=== PATIENT | female | born 1990 | race Caucasian/White ===

== ENCOUNTER → 2021-11-03 | Outpatient (REF) | LOC: M EMP 16:46 | PROVIDERS: ATTEND Family Medicine | DX: Z20.828 Contact with and (suspected) exposure to other viral communicable diseases (principal) ==

== ENCOUNTER → 2021-11-07 | Outpatient (REF) | LOC: M EMP 07:56 | PROVIDERS: ATTEND Family Medicine | DX: Z20.828 Contact with and (suspected) exposure to other viral communicable diseases (principal) ==

== ENCOUNTER → 2022-08-22 | Outpatient (REF) | LOC: M LABSMTC 14:08 | PROVIDERS: ATTEND Family Medicine | DX: Z20.822 Contact with and (suspected) exposure to COVID-19 (principal) ==

== ENCOUNTER 2024-08-04 15:21 | Emergency (ER) | payer OTHER ==
[~2024-08-04] VITALS: Ht 175.3 cm; Wt 92.5 kg
[2024-08-04] MEDS ORDERED: AMOX875T2 PO (15:29)
[2024-08-04] MEDS ORDERED: RABIES IMMUNE GLOBULIN 1500 INTERNATIONAL UNIT/5ML VIAL IM.IMMUN ONE (16:00)
[2024-08-04 16:31] VITALS: BP 111/62; TEMP 98; O2SAT 100
[2024-08-04] MEDS: RABIES VACCINE 2.5 INTERNATIONAL UNITS/ML VIAL (RABAVERT) IM ONE (16:44)
[2024-08-04] MEDS: RABIES IMMUNE GLOBULIN 1500 INTERNATIONAL UNIT/5ML VIAL IM.IMMUN ONE (16:48)
[2024-08-04] MEDS: RABIES IMMUNE GLOBULIN 300 INTERNATIONAL UNITS/1ML VIAL IM.IMMUN ONE (16:50)
== END 2024-08-04 17:09 | disposition home or self-care (01) ==
LOC: M ED 15:21
DX: Z20.3 Contact with and (suspected) exposure to rabies (principal); Z23 Encounter for immunization; S61.251A Open bite of left index finger without damage to nail, initial encounter; W55.01XA Bitten by cat, initial encounter; Y92.9 Unspecified place or not applicable; Y93.9 Activity, unspecified; Y99.9 Unspecified external cause status; Z88.6 Allergy status to analgesic agent

== ENCOUNTER 2024-08-07 06:04 | Emergency (ER) | payer OTHER ==
[~2024-08-07] VITALS: Ht 175.3 cm; Wt 91.4 kg
[~2024-08-07 06:04] MED LIST: AMOX875T2 PO
[2024-08-07 06:05] VITALS: BP 123/68; TEMP 96.7; O2SAT 100
[2024-08-07] MEDS: RABIES VACCINE 2.5 INTERNATIONAL UNITS/ML VIAL (RABAVERT) IM ONE (06:51)
== END 2024-08-07 07:08 | disposition home or self-care (01) ==
LOC: M ED 06:04
DX: Z20.3 Contact with and (suspected) exposure to rabies (principal); Z23 Encounter for immunization; Z88.6 Allergy status to analgesic agent

== ENCOUNTER 2024-08-11 16:41 | Emergency (ER) | payer OTHER ==
[~2024-08-11] VITALS: Ht 175.3 cm; Wt 91.7 kg
[2024-08-11 16:41] VITALS: BP 148/88; TEMP 97.4; O2SAT 99
[2024-08-11] MEDS: RABIES VACCINE 2.5 INTERNATIONAL UNITS/ML VIAL (RABAVERT) IM ONE (17:28)
== END 2024-08-11 18:08 | disposition home or self-care (01) ==
LOC: M ED 16:41
DX: Z29.14 Encounter for prophylactic rabies immune globulin (principal); Z20.3 Contact with and (suspected) exposure to rabies; Z88.6 Allergy status to analgesic agent; Z79.2 Long term (current) use of antibiotics

== ENCOUNTER → 2024-08-17 | Outpatient (REF) | payer OTHER ==
[2024-08-19 11:58] LABS: HPV APTIMA Not Detected (Not Detected)
== END ==
LOC: M SFHCWAGY 12:05
PROVIDERS: ATTEND Nurse Practitioner Family
DX: Z12.4 Encounter for screening for malignant neoplasm of cervix (principal); N94.10 Unspecified dyspareunia
CPT/HCPCS: 87070; 87624; G0123

== ENCOUNTER 2024-08-18 16:52 | Emergency (ER) | payer OTHER ==
[~2024-08-18] VITALS: Ht 175.3 cm; Wt 91.0 kg
[2024-08-18] MEDS: RABIES VACCINE 2.5 INTERNATIONAL UNITS/ML VIAL (RABAVERT) IM ONE (17:34)
[2024-08-18 18:49] VITALS: BP 133/88; TEMP 97.6; O2SAT 99
== END 2024-08-18 18:51 | disposition home or self-care (01) ==
LOC: M ED 16:52
DX: Z00.00 Encounter for general adult medical examination without abnormal findings (principal); Z20.3 Contact with and (suspected) exposure to rabies; Z23 Encounter for immunization; Z88.6 Allergy status to analgesic agent; F41.9 Anxiety disorder, unspecified
CPT/HCPCS: 36415; 80053; 80061; 83036; 84443; 90471; 90675; 99283; G0463

== ENCOUNTER → 2024-08-18 | Outpatient (CLI) | payer OTHER ==
[2024-08-18 19:09] LABS: THYROID STIMULATING HORMONE 1.033 uIU/ML (0.55-4.78)
[2024-08-18 19:12] LABS: ALBUMIN 3.9 G/DL (3.2-5.2); ALKALINE PHOSPHATASE 73 U/L (46-116); ALT/SGPT < 9 U/L (7.0-40); AST/SGOT 10 U/L (<34); BILIRUBIN,TOTAL 0.4 MG/DL (0.3-1.2); BLOOD UREA NITROGEN 15 MG/DL (9-23); CALCIUM LEVEL 9.7 MG/DL (8.5-10.1); CARBON DIOXIDE LEVEL 26 MMOL/L (20-31); CHLORIDE LEVEL 106 MMOL/L (98-107); CHOLESTEROL LEVEL 253 MG/DL (<200); CREATININE FOR GFR 0.82 MG/DL (0.55-1.30); GLOMERULAR FILTRATION RATE > 60.0 (>60); GLUCOSE, FASTING 89 MG/DL (60-100); HDL CHOLESTEROL 60.1 MG/DL (>40); LDL CHOLESTEROL 146.9 MG/DL (<100); NON-HDL-C 192.9 MG/DL; POTASSIUM SERUM 4.8 MMOL/L (3.5-5.1); SODIUM LEVEL 138 MMOL/L (136-145); TOTAL PROTEIN 7.9 G/DL (5.7-8.2); TRIGLYCERIDES LEVEL 230 MG/DL (<150)
[2024-08-18 19:53] LABS: HEMOGLOBIN A1c 5.1 % (4.0-6.0)
== END ==
LOC: M PLALAB 16:32
PROVIDERS: ATTEND Family Medicine
DX: Z00.00 Encounter for general adult medical examination without abnormal findings (principal); F41.9 Anxiety disorder, unspecified

== ENCOUNTER → 2024-10-01 | Outpatient (CLI) | payer OTHER | LOC: M PLAIMG 15:36 | PROVIDERS: ATTEND Student in an Organized Health Care Education/Training Program | DX: M25.562 Pain in left knee (principal); M25.462 Effusion, left knee ==

== ENCOUNTER 2024-10-12 07:59 | Outpatient (RCR) | payer OTHER | END 2024-10-24 | LOC: M PT 07:59 | PROVIDERS: ATTEND Nurse Practitioner Family | DX: N94.10 Unspecified dyspareunia (principal) ==

== ENCOUNTER → 2024-10-26 | Outpatient (CLI) | payer OTHER ==
[2024-10-26 20:16] LABS: URIC ACID 5.5 MG/DL (3.1-7.8)
[2024-10-26 20:18] LABS: C REACTIVE PROTEIN QUANTITATIV 0.9 MG/DL (<1.0)
[2024-10-27 13:16] LABS: RHEUMATOID FACTOR QUANT 3.9 IU/ML (<14)
[2024-10-28 14:17] LABS: ANA SCREEN, IFA NEGATIVE (NEGATIVE)
[2024-10-28 14:32] LABS: CYCLIC CITRULLINATED PEPTIDE < 16 UNITS (<20)
== END ==
LOC: M PLALAB 15:17
PROVIDERS: ATTEND Student in an Organized Health Care Education/Training Program
DX: M25.561 Pain in right knee (principal); Z82.69 Family history of other diseases of the musculoskeletal system and connective tissue; Z82.61 Family history of arthritis

== ENCOUNTER → 2024-11-02 | Outpatient (CLI) | payer OTHER | LOC: M PLAIMG 06:35 | PROVIDERS: ATTEND Student in an Organized Health Care Education/Training Program | DX: M25.562 Pain in left knee (principal) ==

== ENCOUNTER 2024-11-17 12:43 | Outpatient (RCR) | payer OTHER | END 2024-11-24 | LOC: M PT 12:43 | PROVIDERS: ATTEND Nurse Practitioner Family | DX: N94.10 Unspecified dyspareunia (principal) ==

== ENCOUNTER → 2024-12-25 | Outpatient (RCR) | payer OTHER | LOC: M PT 11-27 15:12 | PROVIDERS: ATTEND Nurse Practitioner Family | DX: N94.10 Unspecified dyspareunia (principal) ==

== ENCOUNTER → 2025-01-22 | Outpatient (RCR) | payer OTHER | LOC: M PT 01-01 15:14 | PROVIDERS: ATTEND Nurse Practitioner Family | DX: N94.10 Unspecified dyspareunia (principal) ==

== ENCOUNTER 2025-02-16 08:30 | Outpatient (RCR) | payer OTHER | END 2025-02-22 | LOC: M PT 08:30 | PROVIDERS: ATTEND Nurse Practitioner Family | DX: N94.10 Unspecified dyspareunia (principal) ==

== ENCOUNTER 2025-03-23 11:30 | Outpatient (RCR) | payer OTHER | END 2025-03-24 | LOC: M PT 11:30 | PROVIDERS: ATTEND Nurse Practitioner Family | DX: N94.10 Unspecified dyspareunia (principal) ==